=== PATIENT | male | born 1995 | race American Indian/Alaskan Native ===

== ENCOUNTER 2016-09-09 23:29 | Emergency (ER) | payer SELFPAY ==
[2016-09-09 23:38] VITALS: BP 119/79
--- NOTE | 2016-09-10 00:05 | XRay Report ---
FINAL REPORT PROCEDURE: Left shoulder. TECHNIQUE: Three views. HISTORY: Left shoulder pain. COMPARISON: No prior studies are available for comparison. FINDINGS: The bones appear intact without fracture or dislocation. The joint spaces appear normal. The soft tissues are unremarkable. IMPRESSION: Normal study.
--- NOTE | 2016-09-10 00:09 | Emergency Department Report ---
Upper Extremity - [facility] Chief Complaint: Extremity Problem,Nontraumatic Stated Complaint: LEFT SHOULDER PAIN Time Seen by Provider: 09/10/16 00:07 Upper Extremity: Left Shoulder Occurred When: >5 Days (symptoms greater than one month) Mechanism: Unsure Severity: mild Symptoms: Yes Pain with Movement, No Deformity, No Limited Range of Movement, No Numbness, No Weakness, No Swelling, No Bruising/Ecchymosis, No Laceration or Abrasion Other History: This is a 20-year-old male. He is previously unknown to me. He is right-hand dominant. He presents to the ER complaining of left shoulder pain. There is no trauma. He reports a "popping" sensation. Patient reports that he does a lot of heavy lifting for work. There is no headache, neck pain, chest pain, abdominal pain or shortness of breath. There is no radiation. The pain typically worsens with palpation and range of motion. It decreases with rest. ED Review of Systems ROS: Stated complaint: LEFT SHOULDER PAIN Other details as noted in HPI Constitutional: denies: fever Respiratory: denies: cough Cardiovascular: denies: chest pain Gastrointestinal: denies: abdominal pain Musculoskeletal: arthralgia, myalgia Neurological: denies: weakness, numbness, paresthesias ED Past Medical Hx - Past Medical History Previous Medical History?: No - Surgical History Past Surgical History?: No - Social History Smoking Status: Never Smoker Substance Use Type: None - Medications Home Medications: Home Medications Medication Instructions Recorded Confirmed Last Taken Type Ibuprofen [Motrin 800 MG tab] 800 mg PO Q8HR PRN #30 tablet 09/30/15 Unknown Rx Ibuprofen [Motrin] 600 mg PO Q8H PRN #30 tablet 09/10/16 Unknown Rx Upper Extremity Exam - Exam General: Vital signs noted. No distress. Alert and acting appropriately. Normal neuro exam. There is no redness, pus or streaking or crepitus over the affected joint. 2+pulses noted in the bilateral upper extremities. Full range of motion in the bilateral upper extremities sensation is intact to the deltoid, median, radial, ulnar distribution on the bilateral upper extremities Head and Torso: No HEENT Abnormality, No Neck Tenderness, No Chest/Lungs Abnormality, No Abdominal Tenderness, No Back Tenderness Shoulder Exam: Yes Normal Range of Motion in Shoulder, No Shoulder Tenderness, No Clavicle Tenderness, No Shoulder Deformity, No AC Joint Tenderness Arm Exam: No Arm/Humerus Tenderness, No Arm Deformity Elbow: Yes Normal Range of Motion in Elbow, No Elbow Tenderness, No Elbow Deformity Forearm: No Forearm Tenderness, No Forearm Deformity, No Pain with Pronation, No Pain with Supination Wrist: Yes Normal ROM in Wrist, No Wrist Tenderness, No Wrist Deformity, No Snuffbox Tenderness, No Pain with Axial Thumb Compression Hand: Yes Normal ROM in Digit(s), No Hand Tenderness, No Hand Deformity, No Digit Tenderness, No Digit(s) Deformity, No Tendon Dysfunction CMS Exam: Yes Normal Distal Pulses, Yes Normal Capillary Refill, Yes Normal Distal Sensation, No Broken Skin ED Course Vital Signs 09/09/16 23:34 Temperature 97.7 F Pulse Rate 79 Respiratory 20 Rate Blood Pressure 119/79 O2 Sat by Pulse 97 Oximetry ED Medical Decision Making - Lab Data Vital Signs 09/09/16 23:34 Temperature 97.7 F Pulse Rate 79 Respiratory 20 Rate Blood Pressure 119/79 O2 Sat by Pulse 97 Oximetry - Radiology Data Radiology results: report reviewed, image reviewed Left shoulder x-ray demonstrates no fracture or dislocation - Medical Decision Making Differential diagnosis: Bursitis, soft tissue injury, ligamentous injury, rotator cuff injury Assessment and plan: 20-year-old male with left shoulder pain for a month. There is no redness, pus or streaking. He has full range of motion. He is neurovascularly intact. No clinical stigmata of infection. X-ray demonstrates no fracture or dislocation. He declined pain medication. Patient counseled to avoid heavy lifting, and to follow up with outpatient primary care doctor or orthopedist. He needs to start physical therapy. Patient understands that there may be the risk or possibility of ligamentous and soft tissue injury, which will require further outpatient diagnostic stat did not require emergent intervention at this time. Critical care attestation.: If time is entered above; I have spent that time in minutes in the direct care of this critically ill patient, excluding procedure time. ED Disposition Clinical Impression: Left shoulder pain Disposition: -01 TO HOME OR SELFCARE Is pt being admited?: No Does the pt Need Aspirin: No Condition: Stable Instructions: Rotator Cuff Injury (ED), Rotator Cuff Tendinitis (ED) Additional Instructions: Rest and avoid heavy lifting. Avoid strenuous physical activity. Follow-up with the primary care doctor or orthopedic doctor within the next 7-10 days. Take the pain medication with food as directed. Symptoms most likely coming from either tendinitis or rotator cuff inflammation. This may require physical therapy and/or MRI to be acquired as an outpatient. Physical activity as tolerated. Return to the ER right away with new pain, worsened pain, migration of pain, weakness, numbness, fevers, chills, chest pain , shortness of breath, confusion. Referrals: SAMANTA CRAIG MD [Staff Physician] - 3-5 Days Forms: Work/School Release Form(ED)
== END 2016-09-10 00:44 | disposition home or self-care (01) ==
LOC: ED 23:29
DX: M25.512 Pain in left shoulder (principal)
CPT/HCPCS: 99283